=== PATIENT | female | born 1985 | race Caucasian/White ===

== ENCOUNTER 2018-10-24 19:03 | Emergency (ER) | payer OTHER ==
[~2018-10-24] VITALS: Ht 162.6 cm; Wt 57.6 kg
[2018-10-24] MEDS ORDERED: OBSTETRIX DHA1 EACH (19:28)
== END 2018-10-24 23:14 | disposition home or self-care (01) ==
LOC: ER 19:03
DX: O20.0 Threatened abortion (principal)

== ENCOUNTER → 2018-12-05 | Emergency (ER) | payer OTHER ==
[~2018-12-05] VITALS: Ht 162.6 cm; Wt 59.9 kg
[~2018-12-05] MED LIST: OBSTETRIX DHA1 EACH
== END | disposition home or self-care (01) ==
LOC: ER 15:25
DX: O20.0 Threatened abortion (principal)

== ENCOUNTER 2019-01-17 11:03 | Outpatient (CLI) | payer OTHER | END 2019-01-17 13:35 | disposition home or self-care (01) | LOC: NST 11:03 | DX: Z34.82 Encounter for supervision of other normal pregnancy, second trimester (principal) ==

== ENCOUNTER 2019-03-29 09:30 | Outpatient (CLI) | payer OTHER | END 2019-03-29 10:20 | disposition home or self-care (01) | LOC: NST 09:30 | DX: Z34.83 Encounter for supervision of other normal pregnancy, third trimester (principal) ==

== ENCOUNTER 2019-04-12 09:46 | Outpatient (CLI) | payer OTHER | END 2019-04-12 10:37 | disposition home or self-care (01) | LOC: NST 09:46 | DX: Z34.83 Encounter for supervision of other normal pregnancy, third trimester (principal) ==

== ENCOUNTER 2019-04-19 10:10 | Inpatient (IN) | payer OTHER ==
[~2019-04-19] VITALS: Ht 162.6 cm; Wt 73.9 kg
== END 2019-05-07 16:31 | DRG 807 ==
LOC: LDR 05-04 12:45 → OB/GYN 05-04 12:45 → LDR 05-04 14:12 → OB/GYN 05-05 17:02
PROVIDERS: ADMIT Obstetrics & Gynecology Maternal & Fetal Medicine
PROC: 4A1HXCZ Monitoring of Products of Conception, Cardiac Rate, External Approach (ICD-10-PCS; 2019-05-04)
PROC: 10E0XZZ Delivery of Products of Conception, External Approach (ICD-10-PCS; principal; 2019-05-05)
PROC: 0UQGXZZ Repair Vagina, External Approach (ICD-10-PCS; 2019-05-05)
PROC: 4A033R1 Measurement of Arterial Saturation, Peripheral, Percutaneous Approach (ICD-10-PCS; 2019-05-05)
DX: O71.4 Obstetric high vaginal laceration alone (principal); Z37.0 Single live birth; Z3A.37 37 weeks gestation of pregnancy; Z22.330 Carrier of Group B streptococcus

== ENCOUNTER 2019-04-26 08:06 | Outpatient (CLI) | payer OTHER | END 2019-04-26 09:12 | disposition home or self-care (01) | LOC: NST 08:06 | DX: Z34.83 Encounter for supervision of other normal pregnancy, third trimester (principal) ==

== ENCOUNTER 2019-05-03 08:11 | Outpatient (CLI) | payer OTHER | END 2019-05-03 11:10 | disposition home or self-care (01) | LOC: NST 08:11 | DX: Z34.83 Encounter for supervision of other normal pregnancy, third trimester (principal) ==

== ENCOUNTER 2022-08-06 12:12 | Inpatient (IN) | payer OTHER ==
[~2022-08-06] VITALS: Ht 162.6 cm; Wt 72.1 kg
== END 2022-08-17 14:33 | disposition home or self-care (01) | DRG 807 ==
LOC: LDR 12:12 → OB/GYN 08-15 04:42
PROVIDERS: ADMIT Obstetrics & Gynecology Maternal & Fetal Medicine; ATTEND Obstetrics & Gynecology Maternal & Fetal Medicine
PROC: 10E0XZZ Delivery of Products of Conception, External Approach (ICD-10-PCS; principal; 2022-08-15)
PROC: 0KQM0ZZ Repair Perineum Muscle, Open Approach (ICD-10-PCS; 2022-08-15)
PROC: 4A1HXCZ Monitoring of Products of Conception, Cardiac Rate, External Approach (ICD-10-PCS; 2022-08-15)
DX: O70.1 Second degree perineal laceration during delivery (principal); Z37.0 Single live birth; Z3A.40 40 weeks gestation of pregnancy; Z20.822 Contact with and (suspected) exposure to COVID-19